=== PATIENT | male | born 1975 | race American Indian/Alaskan Native ===

== ENCOUNTER 2018-10-07 09:31 | Emergency (ER) | payer OTHER, SELFPAY ==
[2018-10-07] MEDS ORDERED: NACL 0.9% 1000 ML 1,000 ML IV ONE (09:41)
[2018-10-07] MEDS ORDERED: BENADRYL IV ONE (09:41)
[2018-10-07] MEDS ORDERED: SOLU-Medrol IV ONE (09:42)
[2018-10-07] MEDS ORDERED: PEPCID IV ONE (09:42)
[2018-10-07 10:26] LABS: Alanine Aminotransferase 40 units/L (7-56); Albumin 4.5 g/dL (3.9-5); BUN/Creatinine Ratio 9; Blood Urea Nitrogen 11 mg/dL (9-20); Calcium 9.7 mg/dL (8.4-10.2); Hemolysis Index 14
[2018-10-07 10:28] LABS: Basophils # (Auto) 0.1 K/mm3 (0.0-0.1); Eosinophils # (Auto) 0.1 K/mm3 (0.0-0.4); Eosinophils % (Auto) 1.2 % (0.0-4.3); Hematocrit 45.5 % (35.5-45.6); Hemoglobin 15.4 gm/dl (11.8-15.2); Lymphocytes # (Auto) 2.3 K/mm3 (1.2-5.4); Lymphocytes % (Auto) 21.8 % (13.4-35.0); Mean Corpuscular HGB Conc 34 % (32-34); Mean Corpuscular Volume 90 fl (84-94); Monocytes # (Auto) 1.1 K/mm3 (0.0-0.8); Monocytes % (Auto) 10.3 % (0.0-7.3); Platelet Count 315 K/mm3 (140-440); Red Blood Count 5.07 M/mm3 (3.65-5.03); Red Cell Distribution Width 14.4 % (13.2-15.2)
--- NOTE | 2018-10-07 11:20 | Emergency Department Report ---
ED General Adult HPI - General Chief complaint: Allergic Reaction Stated complaint: ALLERGIC REACTION Time Seen by Provider: 10/07/18 09:41 Source: patient Mode of arrival: Ambulatory Limitations: No Limitations - History of Present Illness Initial comments: The patient presents to the emergency department with a chief complaint of swelling of his lips started yesterday. Patient denies any difficulty with swallowing and initially denies starting any new medications but then remembers that he was was started on lisinopril for his blood pressure. Patient denies any chest pain, shortness breath, or headache. -: Sudden Severity scale (0 -10): 0 Consistency: constant Improves with: none Worsens with: none Associated Symptoms: denies other symptoms Treatments Prior to Arrival: none - Related Data Previous Rx's Medication Instructions Recorded Last Taken Type predniSONE [Deltasone] 20 mg PO DAILY #15 tablet 10/07/18 Unknown Rx Allergies Allergy/AdvReac Type Severity Reaction Status Date / Time No Known Allergies Allergy Unverified 10/07/18 09:32 ED Review of Systems ROS: Stated complaint: ALLERGIC REACTION Other details as noted in HPI Comment: All other systems reviewed and negative Constitutional: denies: chills, fever Eyes: denies: eye pain, eye discharge, vision change ENT: denies: ear pain, throat pain Respiratory: denies: cough, shortness of breath, wheezing Cardiovascular: denies: chest pain, palpitations Endocrine: no symptoms reported Gastrointestinal: denies: abdominal pain, nausea, diarrhea Genitourinary: denies: urgency, dysuria Musculoskeletal: denies: back pain, joint swelling, arthralgia Skin: denies: rash, lesions Neurological: denies: headache, weakness, paresthesias Psychiatric: denies: anxiety, depression Hematological/Lymphatic: denies: easy bleeding, easy bruising ED Past Medical Hx - Past Medical History Previous Medical History?: No - Surgical History Past Surgical History?: No - Social History Smoking Status: Never Smoker Substance Use Type: None - Medications Home Medications: Home Medications Medication Instructions Recorded Confirmed Last Taken Type predniSONE [Deltasone] 20 mg PO DAILY #15 tablet 10/07/18 Unknown Rx ED Physical Exam - General Limitations: No Limitations General appearance: alert, in no apparent distress - Head Head exam: Present: atraumatic, normocephalic - Eye Eye exam: Present: normal appearance, PERRL - ENT ENT exam: Present: mucous membranes moist, other (visit angioedema of the lips upper and lower. There is no intraoral or mucosal involvement. Patient is a brown secretions well without issue) - Neck Neck exam: Present: normal inspection - Respiratory Respiratory exam: Present: normal lung sounds bilaterally. Absent: respiratory distress - Cardiovascular Cardiovascular Exam: Present: regular rate, normal rhythm. Absent: systolic murmur, diastolic murmur, rubs, gallop - GI/Abdominal GI/Abdominal exam: Present: soft, normal bowel sounds - Rectal Rectal exam: Present: deferred - Extremities Exam Extremities exam: Present: normal inspection - Back Exam Back exam: Present: normal inspection - Neurological Exam Neurological exam: Present: alert, oriented X3 - Psychiatric Psychiatric exam: Present: normal affect, normal mood - Skin Skin exam: Present: warm, dry, intact, normal color. Absent: rash ED Course Vital Signs 10/07/18 10/07/18 10:00 11:10 Temperature 98.3 F Pulse Rate 81 75 Respiratory 16 15 Rate Blood Pressure 184/114 Blood Pressure 176/104 [Left] O2 Sat by Pulse 96 96 Oximetry ED Medical Decision Making - Lab Data Result diagrams: 10/07/18 09:49 10/07/18 09:49 Lab Results 10/07/18 10/07/18 Range/Units 09:49 09:49 WBC 10.6 (4.5-11.0) K/mm3 RBC 5.07 H (3.65-5.03) M/mm3 Hgb 15.4 H (11.8-15.2) gm/dl Hct 45.5 (35.5-45.6) % MCV 90 (84-94) fl MCH 30 (28-32) pg MCHC 34 (32-34) % RDW 14.4 (13.2-15.2) % Plt Count 315 (140-440) K/mm3 Lymph % (Auto) 21.8 (13.4-35.0) % Ferry % (Auto) 10.3 H (0.0-7.3) % Eos % (Auto) 1.2 (0.0-4.3) % Baso % (Auto) 1.0 (0.0-1.8) % Lymph # 2.3 (1.2-5.4) K/mm3 Ferry # 1.1 H (0.0-0.8) K/mm3 Eos # 0.1 (0.0-0.4) K/mm3 Baso # 0.1 (0.0-0.1) K/mm3 Seg Neutrophils % 65.7 (40.0-70.0) % Seg Neutrophils # 6.9 (1.8-7.7) K/mm3 Sodium 139 (137-145) mmol/L Potassium 3.7 (3.6-5.0) mmol/L Chloride 99.8 (98-107) mmol/L Carbon Dioxide 24 (22-30) mmol/L Anion Gap 19 mmol/L BUN 11 (9-20) mg/dL Creatinine 1.2 (0.8-1.5) mg/dL Estimated GFR > 60 ml/min BUN/Creatinine Ratio 9 % Glucose 103 H (75-100) mg/dL Calcium 9.7 (8.4-10.2) mg/dL Total Bilirubin 0.50 (0.1-1.2) mg/dL AST 34 (5-40) units/L ALT 40 (7-56) units/L Alkaline Phosphatase 71 (35-129) units/L Total Protein 8.1 (6.3-8.2) g/dL Albumin 4.5 (3.9-5) g/dL Albumin/Globulin Ratio 1.3 % - Medical Decision Making Discussed with patient the need to stop taking lisinopril Critical care attestation.: If time is entered above; I have spent that time in minutes in the direct care of this critically ill patient, excluding procedure time. ED Disposition Clinical Impression: Angioedema Disposition: DC- TO HOME OR SELFCARE Is pt being admited?: No Does the pt Need Aspirin: No Condition: Stable Instructions: Angioedema (ED) Additional Instructions: Please return if symptoms become worse if you have difficulty swallowing or breathing. As discussed the swelling go down over the next couple days As discussed please stop taking lisinopril Referrals: DELFIN ROSADO MD [Primary Care Provider] - 3-5 Days [facility] [Provider Group] - 3-5 Days [facility] [Provider Group] - 3-5 Days Time of Disposition: 12:39
[2018-10-07 13:10] VITALS: BP 165/102
== END 2018-10-07 13:12 | disposition home or self-care (01) ==
LOC: ED 09:31
DX: T78.3XXA Angioneurotic edema, initial encounter (principal)
CPT/HCPCS: 36415; 80053; 85025; 96374; 96375; 99283; J1200; J2920; J7030

== ENCOUNTER 2021-08-21 12:51 | Emergency (ER) | payer SELFPAY ==
[2021-08-21] MEDS ORDERED: cloNIDine 0.2 MG TAB PO ONE (14:53)
[2021-08-21] MEDS ORDERED: methylPREDNISolone Sod Succinate 125 MG/2 ML INJ IM ONE (15:16)
[2021-08-21] MEDS ORDERED: diphenhydrAMINE 50 MG/ML VIAL IV ONE (15:16)
[2021-08-21] MEDS ORDERED: diphenhydrAMINE 25 MG CAP PO ONE (15:16)
[2021-08-21] MEDS ORDERED: SODIUM CHLORIDE 0.9% 1000 ML 1,000 ML IV ONE (15:16)
[2021-08-21] MEDS ORDERED: FAMOTIDINE 20 MG TAB PO ONE (15:17)
[2021-08-21] MEDS ORDERED: methylPREDNISolone Sod Succinate 125 MG/2 ML INJ IV ONE (15:17)
[2021-08-21 16:18] LABS: Basophils # (Auto) 0.1 K/mm3 (0.0-0.1); Basophils % (Auto) 0.9 % (0.0-1.8); Eosinophils # (Auto) 0.3 K/mm3 (0.0-0.4); Eosinophils % (Auto) 2.9 % (0.0-4.3); Hematocrit 45.1 % (35.5-45.6); Lymphocytes % (Auto) 24.8 % (13.4-35.0); Mean Corpuscular HGB Conc 33 % (32-34); Mean Corpuscular Volume 90 fl (84-94); Monocytes # (Auto) 1.5 K/mm3 (0.0-0.8); Monocytes % (Auto) 12.6 % (0.0-7.3); Platelet Count 316 K/mm3 (140-440)
--- NOTE | 2021-08-21 16:19 | XRay Report ---
CHEST 1 VIEW 08/21/2021 3:12 PM INDICATION / CLINICAL INFORMATION: Allergic Reaction. COMPARISON: None available. FINDINGS: SUPPORT DEVICES: None. HEART / MEDIASTINUM: No significant abnormality. LUNGS / PLEURA: No significant pulmonary or pleural abnormality. No pneumothorax. ADDITIONAL FINDINGS: No significant additional findings. IMPRESSION: 1. No acute findings. Signer Name: Fadia Herrera MD Signed: 08/21/2021 4:15 PM Workstation Name: [id number]
[2021-08-21 16:25] LABS: Alanine Aminotransferase 31 units/L (7-56); Albumin 4.3 g/dL (3.9-5); BUN/Creatinine Ratio 10; Blood Urea Nitrogen 11 mg/dL (9-20); Calcium 9.6 mg/dL (8.4-10.2); Hemolysis Index 6
--- NOTE | 2021-08-21 16:57 | Emergency Department Report ---
ED General Adult HPI - General Chief complaint: Allergic Reaction Stated complaint: ALLERGIC RX Time Seen by Provider: 08/21/21 15:16 Source: patient Mode of arrival: Ambulatory Limitations: No Limitations - History of Present Illness Initial comments: pt presents to ed with allergic reaction to lisinopril. , pt has angioedema froom ARIANNA before but for some reason start taking ARIANNA ahain no SOB no JOHN no diff swallowing -: Gradual, hour(s) Location: mouth Associated Symptoms: denies: denies other symptoms, confusion, chest pain, headaches, loss of appetite, malaise - Related Data Previous Rx's Medication Instructions Recorded Last Taken Type predniSONE [Deltasone] 20 mg PO DAILY #15 tablet 10/07/18 Unknown Rx Allergies Allergy/AdvReac Type Severity Reaction Status Date / Time No Known Allergies Allergy Unverified 10/07/18 09:32 ED Review of Systems ROS: Stated complaint: ALLERGIC RX Other details as noted in HPI Constitutional: denies: chills, fever Eyes: denies: eye pain, eye discharge, vision change ENT: denies: ear pain, throat pain Respiratory: denies: cough, shortness of breath, wheezing Cardiovascular: denies: chest pain, palpitations Endocrine: no symptoms reported Gastrointestinal: denies: abdominal pain, nausea, diarrhea Genitourinary: denies: urgency, dysuria Musculoskeletal: denies: back pain, joint swelling, arthralgia Skin: denies: rash, lesions Neurological: denies: headache, weakness, paresthesias Psychiatric: denies: anxiety, depression Hematological/Lymphatic: denies: easy bleeding, easy bruising ED Past Medical Hx - Past Medical History Previous Medical History?: No Hx Hypertension: Yes Hx CVA: No - Social History Smoking Status: Never Smoker Substance Use Type: None - Medications Home Medications: Home Medications Medication Instructions Recorded Confirmed Last Taken Type predniSONE [Deltasone] 20 mg PO DAILY #15 tablet 10/07/18 Unknown Rx ED Physical Exam - General Limitations: No Limitations General appearance: alert, in no apparent distress - Head Head exam: Present: atraumatic, normocephalic - Eye Eye exam: Present: normal appearance - ENT ENT exam: Present: mucous membranes moist - Expanded ENT Exam Expanded Mouth exam: Present: other (lip edema no simpormise ) - Neck Neck exam: Present: normal inspection - Respiratory Respiratory exam: Present: normal lung sounds bilaterally. Absent: respiratory distress - Cardiovascular Cardiovascular Exam: Present: regular rate, normal rhythm. Absent: systolic murmur, diastolic murmur, rubs, gallop - GI/Abdominal GI/Abdominal exam: Present: soft, normal bowel sounds - Rectal Rectal exam: Present: deferred - Extremities Exam Extremities exam: Present: normal inspection - Back Exam Back exam: Present: normal inspection - Neurological Exam Neurological exam: Present: alert, oriented X3 - Psychiatric Psychiatric exam: Present: normal affect, normal mood - Skin Skin exam: Present: warm, dry, intact, normal color. Absent: rash ED Course Vital Signs 08/21/21 08/21/21 12:57 15:14 Temperature 99.1 F Pulse Rate 87 Respiratory 16 Rate Blood Pressure 244/138 Blood Pressure 243/144 [Left] O2 Sat by Pulse 100 Oximetry ED Medical Decision Making - Lab Data Result diagrams: 08/21/21 15:29 08/21/21 15:29 - Radiology Data Radiology results: report reviewed, image reviewed - Medical Decision Making sterjaneths eugenio and antonioadsheelal , not worse, no compromise, will stop ARIANNA and start on calcium blockers Critical care attestation.: If time is entered above; I have spent that time in minutes in the direct care of this critically ill patient, excluding procedure time. ED Disposition Clinical Impression: Angioedema, ARIANNA inhibitor-aggravated angioedema Disposition: 01 HOME / SELF CARE / HOMELESS Is pt being admited?: No Does the pt Need Aspirin: No Condition: Stable Instructions: Angioedema, [id number] Referrals: NASIMA PADILLA MD [Primary Care Provider] - 3-5 Days
[2021-08-21 17:34] VITALS: BP 124/71
== END 2021-08-21 17:33 | disposition home or self-care (01) ==
LOC: ED 12:51
DX: T78.3XXA Angioneurotic edema, initial encounter (principal); I10 Essential (primary) hypertension; Z79.899 Other long term (current) drug therapy; X58.XXXA Exposure to other specified factors, initial encounter
CPT/HCPCS: 36415; 71045; 80053; 85025; 96361; 96372; 96374; 99284; J1200; J2930; J7030; 99283